=== PATIENT | male | born 1985 | race Caucasian/White ===

== ENCOUNTER 2019-06-28 12:15 | Emergency (ER) | payer OTHER ==
[2019-06-28] MEDS ORDERED: dexAMETHasone 10 MG/ML VIAL ONE (12:51)
[2019-06-28] MEDS ORDERED: MORPHINE 4 MG/ML SYR ONE (12:52)
[2019-06-28] MEDS ORDERED: ONDANSETRON 4 MG/2 ML VIAL ONE (12:53)
[2019-06-28] MEDS ORDERED: KETOROLAC 30 MG/ML INJ ONE (12:53)
[2019-06-28] MEDS ORDERED: DIAZEPAM 10 MG/2 ML INJ SYRINGE ONE (13:32)
--- NOTE | 2019-06-28 15:11 | RAD REPORT ---
EXAM DESCRIPTION: CTSpine Lumbar Wo Con06/28/2019 2:56 pm CLINICAL HISTORY: Back injury with back pain COMPARISON: None TECHNIQUE: Computed axial tomography lumbar spine was obtained with coronal and sagittal reconstruct ion. All CT scans are performed using dose optimization technique as appropriate and may include automated exposure control or mA/KV adjustment according to patient size. FINDINGS: No fracture is seen. No dislocation is noted. Small disc bulges are visualized. Probable small central disc herniation L5-S1 Neural foramina appear patent IMPRESSION: Negative for a lumbar fracture. Probable small central disc herniation L5-S1 If patient's symptoms persist MRI lumbar spine would be recommended for further evaluation
[2019-06-28] MEDS ORDERED: HYDROMORPHONE HCL 0.5 MG/0.5 ML INJ ONE (16:22)
--- NOTE | 2019-06-28 16:39 | EDPHYS ---
Physician Documentation [facility] Name: Randy Estrada Age: 34 yrs Sex: Male : 1985 Arrival Date: 06/28/2019 Time: 12:19 Bed 18 Private MD: ED Physician Favian Lyn HPI: 06/28 12:47 This 34 yrs old Male presents to ER via EMS with complaints of Back Pain. jmm 12:47 The patient presents with pain that is acute. Onset: The symptoms/episode jmm began/occurred acutely, just prior to arrival. The pain radiates to the right leg and left leg. Associated signs and symptoms: Pertinent negatives: abdominal pain, chest pain, fever, incontinence. This is a 34 year old male with no chronic medical conditions that presents to the ED with complaints of lower back pain which radiates down both of his legs beginning after bending down in the shower. Patient states has had previous back injuries. Denies bowel or bladder issues. States feeling tingling down both legs. . Historical: - Allergies: 12:21 No Known Allergies; em - Home Meds: 12:21 None [Active]; em - PMHx: 12:21 None; em - PSHx: 12:21 Tonsillectomy; Adenoids; em - Immunization history:: Adult Immunizations up to date. - Social history:: Smoking status: Patient uses tobacco products, smokes one-half pack cigarettes per day. - Ebola Screening: : Patient negative for fever greater than or equal to 101.5 degrees Fahrenheit, and additional compatible Ebola Virus Disease symptoms Patient denies exposure to infectious person Patient denies travel to an Ebola-affected area in the 21 days before illness onset No symptoms or risks identified at this time. ROS: 12:47 Constitutional: Negative for fever, chills, and weight loss, Cardiovascular: Negative jmm for chest pain, palpitations, and edema, Respiratory: Negative for shortness of breath, cough, wheezing, and pleuritic chest pain. 12:47 Back: Positive for pain with movement. 12:47 All other systems are negative. Exam: 12:47 Constitutional: This is a well developed, well nourished patient who is awake, alert, jmm and in no acute distress. Head/Face: atraumatic. Eyes: EOMI, no conjunctival erythema appreciated ENT: Moist Mucus Membranes Neck: Trachea midline, Supple Chest/axilla: Normal chest wall appearance and motion. Cardiovascular: Regular rate and rhythm. No edema appreciated Respiratory: Normal respirations, no respiratory distress appreciated Abdomen/GI: Non distended, soft 12:47 Back: lumbar midline tenderness noted. 12:47 Neuro: Orientation: is normal, Mentation: is normal, Memory: is normal, bilaterally extensor hallucis longus intact. 12:47 Psych: Behavior/mood is pleasant, cooperative. Vital Signs: 12:22 BP 127 / 79; Pulse 86; Resp 18; Temp 98.1; Pulse Ox 99% on R/A; Weight 95.25 kg; Height em 6 ft. 1 in. (185.42 cm); Pain 10/10; 13:30 BP 111 / 76; Pulse 72; Resp 18; Pulse Ox 99% on R/A; Pain 9/10; em 14:30 BP 118 / 71; Pulse 68; Resp 18; Pulse Ox 99% on R/A; Pain 9/10; em 15:30 BP 116 / 76; Pulse 71; Resp 18; Pulse Ox 99% on R/A; Pain 7/10; em 16:27 BP 119 / 79; Pulse 69; Resp 16; Pulse Ox 97% on R/A; Pain 4/10; em 12:22 Body Mass Index 27.71 (95.25 kg, 185.42 cm) em MDM: 12:28 Patient medically screened. jeannie 16:35 Data reviewed: vital signs, nurses notes. Counseling: I had a detailed discussion with sury the patient and/or guardian regarding: the historical points, exam findings, and any diagnostic results supporting the discharge/admit diagnosis, radiology results, the need for outpatient follow up, to return to the emergency department if symptoms worsen or persist or if there are any questions or concerns that arise at home. ED course: I do not suspect cord compression or cauda equina. Patient states feeling much better and is able to ambulate in the ED. . 06/28 14:18 Order name: CT Lumbar Spine Wo Con; Complete Time: 15:27 [facility] 06/28 12:44 Order name: Saline Lock; Complete Time: 12:47 [facility] Administered Medications: 12:50 Drug: Ketorolac 30 mg Route: IVP; Site: right antecubital; hb 13:30 Follow up: Response: No adverse reaction; Pain is unchanged, physician notified em 12:52 Drug: Decadron - Dexamethasone 10 mg Route: IVP; Site: right antecubital; hb 13:30 Follow up: Response: No adverse reaction em 12:54 Drug: Zofran 4 mg Route: IVP; Site: right antecubital; hb 13:30 Follow up: Response: No adverse reaction em 12:57 Drug: morphine 4 mg Route: IVP; Site: right antecubital; hb 13:30 Follow up: Response: No adverse reaction; Pain is unchanged, physician notified em 13:36 Drug: Valium 5 mg Route: IVP; Site: right antecubital; sg 16:23 Follow up: Response: No adverse reaction; Marked relief of symptoms; Pain is decreased em 16:43 Not Given (Patient Refused; RATES PAIN 4/10): Dilaudid 0.5 mg IVP once; RASS on ADMIN: em Combtv4, Very Agttd3, Agttd2, Rstlss1, AlertClm0, Drwsy-1, Lt Sdtn-2, Mod Sdtn-3, Dp Sdtn-4, UnArsble-5 Disposition: 06/28/19 16:37 Discharged to Home. Impression: Low back pain. - Condition is Stable. - Discharge Instructions: Back Pain, Adult. - Prescriptions for Zanaflex 4 mg Oral Tablet - take 1 tablet by ORAL route every 8 hours As needed; 20 tablet. Medrol (Herve) 4 mg Oral Tablets, Dose Pack - take 1 tablet by ORAL route as directed - follow package instructions; 1 packet. - Medication Reconciliation Form, Thank You Letter, Antibiotic Education, Prescription Opioid Use form. - Follow up: Private Physician; When: 2 - 3 days; Reason: Recheck today's complaints, Continuance of care, Re-evaluation by your physician. Addendum: 06/30/2019 09:55 Co-signature as Attending Physician, Favian Lyn MD I agree with the assessment and k dr plan of care. Signatures: Dispatcher [employer] Juan Simeon RN RN sg Favian Lyn MD MD kdr Mickail, Joel, PA PA jmm Massimo Barksdale, PRODUCTION SUPPORT SPECIALIST PRODUCTION SUPPORT SPECIALIST em Quita Butt RN RN Corrections: (The following items were deleted from the chart) 06/28 15:20 12:45 Lumbar Spine 3 Views+RAD.RAD.BRZ ordered. EDWV EDWV 16:55 16:37 06/28/2019 16:37 Discharged to Home. Impression: Low back pain. Condition is em Stable. Forms are Medication Reconciliation Form, Thank You Letter, Antibiotic Education, Prescription Opioid Use. Follow up: Private Physician; When: 2 - 3 days; Reason: Recheck today's complaints, Continuance of care, Re-evaluation by your physician. sury
--- NOTE | 2019-06-28 16:39 | ER ---
Nurse's Notes [facility] Name: Randy Estrada Age: 34 yrs Sex: Male : 1985 Arrival Date: 06/28/2019 Time: 12:19 Bed 18 Private MD: Diagnosis: Low back pain Presentation: 06/28 12:20 Presenting complaint: EMS states: called out for low back pain, "bent over to scrap picker a em towel and back gave out" hx of back pain, VSS. Transition of care: patient was not received from another setting of care. Onset of symptoms was June 28, 2019. Risk Assessment: Do you want to hurt yourself or someone else? Patient reports no desire to harm self or others. Initial Sepsis Screen: Does the patient meet any 2 criteria? No. Patient's initial sepsis screen is negative. Does the patient have a suspected source of infection? No. Patient's initial sepsis screen is negative. Care prior to arrival: None. 12:20 Method Of Arrival: EMS: [facility] em 12:24 Acuity: NANCY 4 hb Historical: - Allergies: 12:21 No Known Allergies; em - Home Meds: 12:21 None [Active]; em - PMHx: 12:21 None; em - PSHx: 12:21 Tonsillectomy; Adenoids; em - Immunization history:: Adult Immunizations up to date. - Social history:: Smoking status: Patient uses tobacco products, smokes one-half pack cigarettes per day. - Ebola Screening: : Patient negative for fever greater than or equal to 101.5 degrees Fahrenheit, and additional compatible Ebola Virus Disease symptoms Patient denies exposure to infectious person Patient denies travel to an Ebola-affected area in the 21 days before illness onset No symptoms or risks identified at this time. Screenin:20 Abuse screen: Denies threats or abuse. Nutritional screening: No deficits noted. em Tuberculosis screening: No symptoms or risk factors identified. Fall Risk None identified. Assessment: 12:22 General: Appears in no apparent distress. uncomfortable, Behavior is calm, cooperative. em Pain: Complains of pain in back Pain currently is 10 out of 10 on a pain scale. Quality of pain is described as sharp. Neuro: Level of Consciousness is awake, alert, obeys commands, Oriented to person, place, time, situation, Appropriate for age Denies paresthesias. Cardiovascular: Capillary refill < 3 seconds Patient's skin is warm and dry. Respiratory: Airway is patent Respiratory effort is even, unlabored, Respiratory pattern is regular, symmetrical. GI: Abdomen is flat, Reports nausea, vomiting. Derm: Skin is intact, is healthy with good turgor, Skin is pink, warm \\T\\ dry. Musculoskeletal: Capillary refill < 3 seconds, Range of motion: intact in all extremities. 12:32 Reassessment: I agree with previous assessment. 13:30 Reassessment: Patient appears in no apparent distress at this time. Patient and/or em family updated on plan of care and expected duration. Pain level reassessed. Patient is alert, oriented x 3, equal unlabored respirations, skin warm/dry/pink. reports pain medication didn't help, "just made me feel loopy, pain is about the same". 15:00 Reassessment: Patient appears in no apparent distress at this time. Patient and/or em family updated on plan of care and expected duration. Pain level reassessed. Patient is alert, oriented x 3, equal unlabored respirations, skin warm/dry/pink. reports pain is 7/10. 16:10 Reassessment: Patient appears in no apparent distress at this time. Patient and/or em family updated on plan of care and expected duration. Pain level reassessed. Patient is alert, oriented x 3, equal unlabored respirations, skin warm/dry/pink. sitting up and ambulated while holding onto bed, reports pain is tolerable but legs give out, provider notified. 16:41 Reassessment: request a set of crutches, provider notified. em Vital Signs: 12:22 BP 127 / 79; Pulse 86; Resp 18; Temp 98.1; Pulse Ox 99% on R/A; Weight 95.25 kg; Height em 6 ft. 1 in. (185.42 cm); Pain 10/10; 13:30 BP 111 / 76; Pulse 72; Resp 18; Pulse Ox 99% on R/A; Pain 9/10; em 14:30 BP 118 / 71; Pulse 68; Resp 18; Pulse Ox 99% on R/A; Pain 9/10; em 15:30 BP 116 / 76; Pulse 71; Resp 18; Pulse Ox 99% on R/A; Pain 7/10; em 16:27 BP 119 / 79; Pulse 69; Resp 16; Pulse Ox 97% on R/A; Pain 4/10; em 12:22 Body Mass Index 27.71 (95.25 kg, 185.42 cm) em ED Course: 12:19 Patient arrived in ED. em 12:20 Frandy Zaidi PA is PHCP. m 12:20 Favian Lyn MD is Attending Physician. m 12:20 Patient has correct armband on for positive identification. Bed in low position. Call em light in reach. Side rails up X2. Pulse ox on. NIBP on. 12:22 Arm band placed on. em 12:24 Triage completed. hb 12:33 Massimo Barksdale LVN is Primary Nurse. em 12:48 Inserted saline lock: 20 gauge in right antecubital area, using aseptic technique. em 14:58 CT Lumbar Spine Wo Con In Process Unspecified. EDMS 16:50 Crutch training done. em 16:51 No provider procedures requiring assistance completed. IV discontinued, intact, em bleeding controlled, No redness/swelling at site. Pressure dressing applied. Administered Medications: 12:50 Drug: Ketorolac 30 mg Route: IVP; Site: right antecubital; hb 13:30 Follow up: Response: No adverse reaction; Pain is unchanged, physician notified em 12:52 Drug: Decadron - Dexamethasone 10 mg Route: IVP; Site: right antecubital; hb 13:30 Follow up: Response: No adverse reaction em 12:54 Drug: Zofran 4 mg Route: IVP; Site: right antecubital; hb 13:30 Follow up: Response: No adverse reaction em 12:57 Drug: morphine 4 mg Route: IVP; Site: right antecubital; hb 13:30 Follow up: Response: No adverse reaction; Pain is unchanged, physician notified em 13:36 Drug: Valium 5 mg Route: IVP; Site: right antecubital; sg 16:23 Follow up: Response: No adverse reaction; Marked relief of symptoms; Pain is decreased em 16:43 Not Given (Patient Refused; RATES PAIN 4/10): Dilaudid 0.5 mg IVP once; RASS on ADMIN: em Combtv4, Very Agttd3, Agttd2, Rstlss1, AlertClm0, Drwsy-1, Lt Sdtn-2, Mod Sdtn-3, Dp Sdtn-4, UnArsble-5 Outcome: 16:37 Discharge ordered by . sury 16:52 Discharged to home with crutches. em 16:52 Condition: good 16:52 Discharge instructions given to patient, Instructed on discharge instructions, follow up and referral plans. medication usage, crutch walking, Demonstrated understanding of instructions, follow-up care, medications, crutch walking, Prescriptions given X 2. 16:55 Patient left the ED. em Signatures: Dispatcher [employer] Juan Simeon, RN RN Frandy Tsai PA PA Massimo Winters, BODY TEAM MEMBER BODY TEAM MEMBER em Quita Butt, RN RN hb
[2019-06-28 18:50] VITALS: TEMP 98.1
[2019-06-28 18:55] VITALS: BP 119/79; O2SAT 97
== END 2019-06-28 16:55 | disposition home or self-care (01) ==
LOC: ER 12:15
DX: M54.5 Low back pain (principal); F17.210 Nicotine dependence, cigarettes, uncomplicated
CPT/HCPCS: 72131; 96375; 96374; 99284; J3360; J1100; J2405; J1170